=== PATIENT | female | born 1995 | race Caucasian/White ===

== ENCOUNTER 2019-08-30 14:29 | Inpatient (IN) | payer BC ==
[~2019-08-30 14:29] MED LIST: Dexamethasone 20 MG/5 ML VIAL ONE; Glycopyrrolate 0.2 MG/ML 5 ML SYRINGE ONE; Ketorolac Tromethamine 30 MG/ML VIAL ONE; Lidocaine 1% PF 5 ML VIAL ONE; Ondansetron PF 4 MG/2 ML Vial ONE; PHENYLEPHRINE-NS 100 MCG/ML 10 ML SYRINGE ONE; PROPOFOL 200 MG/20 ML VIAL ONE; Rocuronium Bromide 10 MG/ML (10ML VIAL) ONE; ePHEDrine/0.9% NaCl/PF SYRINGE 50 mg/10 ml ONE
[2019-08-30] MEDS ORDERED: Ondansetron PF 4 MG/2 ML Vial ONE ×2 (14:36→15:15)
[2019-08-30 15:03] LABS: #Eosinphils 0.2 thou/uL (0.0-0.7); #Lymphocytes 2.1 thou/uL (1.20-3.40); #Monocytes 0.6 thou/uL (0.11-0.59); #Neutrophils 9.6 thou/uL (1.40-6.50); %Basophils 0.1 % (0.0-1.0); %Lymphocytes 16.3 % (21.0-51.0); %Monocytes 4.8 % (0.0-10.0); %Neutrophils 76.7 % (42.0-75.0); Hemoglobin 11.2 g/dL (12.0-16.0); Mean Corpuscular HGB CONC 33.2 g/dL (32.0-36.0); Mean Corpuscular Volume 87.2 fL (78.0-98.0); Mean Platelet Volume 9.4 fL (7.4-10.4); Platelet Count 226 thou/uL (130-400); RBC Distribution Width 11.1 % (11.5-14.5); Red Blood Cell (RBC) Count 3.85 mill/uL (4.20-5.40); White Blood Cell (WBC) Count 12.5 thou/uL (4.8-10.8)
[2019-08-30 15:26] LABS: BHCG - Serum POSITIVE (NEGATIVE); Pregs Control Background? CLEAR/WHITE (CLR/WHITE); Pregs Control Bar Appear? YES (CONTROL BAR)
[2019-08-30] MEDS ORDERED: Fentanyl 100 MCG/2 ML VIAL ONE ×4 (15:40→20:46)
[2019-08-30 15:41] LABS: ALT (SGPT) 13 U/L (8-55); AST (SGOT) 25 U/L (5-34); Albumin 4.1 g/dL (3.5-5.0); Alkaline Phosphatase 82 U/L (40-110); Anion Gap 18 mmol/L (10-20); BUN (Urea Nitrogen) 11 mg/dL (7.0-18.7); Bilirubin, Total 0.3 mg/dL (0.2-1.2); Calc. Creatinine Clearance 0 mL/min (70-130); Calcium 9.2 mg/dL (7.8-10.44); Carbon Dioxide 18 mmol/L (22-29); Chloride 108 mmol/L (98-107); Estimated GFR-MDRD Greater than 90; Globulin 2.8 g/dL (2.4-3.5); Glucose 137 mg/dL (70-105); Lipase 22 U/L (8-78); Potassium 4.1 mmol/L (3.5-5.1); Protein, Total 6.9 g/dL (6.0-8.3); Sodium 140 mmol/L (136-145)
--- NOTE | 2019-08-30 16:43 | ULT ---
TRANSABDOMINAL TRANSVAGINAL PELVIC ULTRASOUND DATE:: 08/30/2019 3:34 PM CLINICAL HISTORY: Pelvic pain. COMPARISON: None. TECHNIQUE: Grayscale, color Doppler and spectral Doppler images were obtained of the pelvis see a tra nsabdominal transvaginal approach Uterus: Size: Uterus measures 8.7 x 7.8 cm Mass: There is a well-circumscribed cystic abnormality is seen within the region of the left cornua t hat has appearance of a gestational sac. There is an internal pole with no internal heart tones. The mean sac diameter of this gestational sac was 2.93 cm. The crown-rump length of the pole is 2.15 cm giving estimated gestational age of 8 weeks and 6 days. Small yolk sac is identified within the gestational sac. A second gestational sac is seen within the region of the left adnexa measuring 2.15 cm with an internal pole measuring 1 cm giving an estimated gestational age of 7 weeks and 0 days. There is no documentable heart tones with this pole. Cervix: Within normal limits Endometrium: Moderately thickened Endometrial Thickness: 15 mm Ovaries: The right and left ovary were not well seen. Mass: Left adnexal ectopic as above. Flow: Not assessed Cul-de-sac: Mild complex fluid is seen within the cul-de-sac. IMPRESSION: 2 separate ectopic gestational sacs containing poles are present. One is seen within the region of the left cornua of the uterus. An additional is seen adjacent to the region of the left adnexa. Both the gestational sacs have no documented internal heart tones. Findings are most consistent with aborted ectopic pregnancies. There is a mild amount of complex fluid present within the cul-de-sac suspicious for small amount of hemorrhage. [employer] consultation is recommended. Findings called to Dr. Luna at 4:30 PM on August 30, 2019.
--- NOTE | 2019-08-30 17:40 | PDOC.FPRHP ---
- History of Present Illness Chief Complaint: Abdominal pain, syncope History of Present Illness: 24 year old female presents with abdominal pain and syncopal episode at home. Onset of abdominal pain was sudden and severe, just prior to arrival. Patient states LMP was 08/23/2019. Last menstrual cycle prior was in June. Patient discontinued oral contraceptives 2 months ago. Prior to that, she was on OCP's for approximately one year. She had two menstrual cycles while on OCP's. Patient sexually active. She denies any history of STD's. Patient unaware of . OB Hospitalist called after TVUS revealed a cornual and tubal at appx 8.6 wks and 7.0 wks, respectively, with no heartbeat. Patient had syncopal episode while trying to get in wheelchair. She has been fluid resuscitated and is currently stable. However, she continues to have significant amount of pain. Bedside sono was performed with OB Hospitalist at bedside which was suspicious for cornual . Although location of other gestational sac difficult to ascertain. Patient denies chest pain, shortness of breath, N/V/D, fever, or chills. - History PMHx: Denies asthma, HTN, DM, or any other pertinent PMH PSHx: Cholecystecomy 2009, Gastric sleeve 2012 FHx: Non-contributory Social: Denies tobacco, alcohol, drug use - Review of Systems General: denies: fever/chills, weight/appetite/sleep changes Eyes: denies: vision changes ENT: denies: nasal congestion, rhinorrhea Respiratory: denies: cough, congestion, shortness of breath Cardiovascular: denies: chest pain, palpitation, edema Gastrointestinal: reports: nausea, abdominal pain. denies: vomiting Genitourinary: denies: dysuria Skin: denies: rashes Musculoskeletal: denies: pain, tenderness Neurological: reports: syncope. denies: numbness Psychological: reports: anxiety. denies: depression - Vital signs BP: 102/47 HR: 88 RR: 16 Tmax: Afebrile Pox: 100% on 1.5L - Physical Exam Constitutional: NAD, awake, alert and oriented HEENT: grossly normal vision, grossly normal hearing Heart: pulses present, no edema Abdomen: soft -Abdomen: Significantly TTP throughout, worse in right quadrant Neurological: no focal deficit Skin: no rash/lesions, capillary refill <2 seconds Heme/Lymphatic: no unusual bruising or bleeding, no purpura Psychiatric: normal mood and affect, good judgment and insight, intact recent and remote memory FMR H&P: Results - Labs Result Diagrams: 08/30/19 14:55 08/30/19 14:54 Lab results: WBC 12.5 thou/uL (4.8-10.8) H 08/30/19 14:55 Hgb 11.2 g/dL (12.0-16.0) L 08/30/19 14:55 Hct 33.6 % (36.0-47.0) L 08/30/19 14:55 MCV 87.2 fL (78.0-98.0) 08/30/19 14:55 Plt Count 226 thou/uL (130-400) 08/30/19 14:55 Neutrophils % 76.7 % (42.0-75.0) H 08/30/19 14:55 Sodium 140 mmol/L (136-145) 08/30/19 14:54 Potassium 4.1 mmol/L (3.5-5.1) 08/30/19 14:54 Chloride 108 mmol/L (98-107) H 08/30/19 14:54 Carbon Dioxide 18 mmol/L (22-29) L 08/30/19 14:54 BUN 11 mg/dL (7.0-18.7) 08/30/19 14:54 Creatinine 0.64 mg/dL (0.6-1.1) 08/30/19 14:54 Glucose 137 mg/dL (70-105) H 08/30/19 14:54 Calcium 9.2 mg/dL (7.8-10.44) 08/30/19 14:54 Total Bilirubin 0.3 mg/dL (0.2-1.2) 08/30/19 14:54 AST 25 U/L (5-34) 08/30/19 14:54 ALT 13 U/L (8-55) 08/30/19 14:54 Alkaline Phosphatase 82 U/L (40-110) 08/30/19 14:54 Serum Total Protein 6.9 g/dL (6.0-8.3) 08/30/19 14:54 Albumin 4.1 g/dL (3.5-5.0) 08/30/19 14:54 Lipase 22 U/L (8-78) 08/30/19 14:54 FMR H&P: A/P - Problem List (1) Ectopic Current Visit: Yes Status: Acute Code(s): O00.90 - UNSPECIFIED ECTOPIC WITHOUT INTRAUTERINE (2) Syncope Current Visit: Yes Status: Acute Code(s): R55 - SYNCOPE AND COLLAPSE - Plan 24 year old female presents with abdominal pain Unstable ectopic - Visualization via TVUS with OB Hospitalist at bedside, two separate gestational sacs which appear to outside the endometrium - 2 syncopal episodes requiring fluid resuscitation; will continue LR's - Will proceed with laporoscopic surgery with potential for open surgery or D&C ; consents signed - OB backup called in to assist with case - VSS currently stable, will continue to monitor - Type and screen - H/H 11.2/33.6 Syncope - Likely 2/2 above - Fluid resuscitation - Continue to monitor VS and intervene as necessary Dispo: Admit for surgical intervention. Patient to go to [facility] after [facility] if stable. Lakisha Sanders, DO PGY-3 FMR H&P: Upper Level - Plan Date/Time: 08/30/19 1735 I, [], have evaluated this patient and agree with findings/plan as outlined by internet systems administrator resident. Pertinent changes/additions are listed here. Addendum - Attending - Attending Attestation Date/Time: 08/30/19 7515 I personally evaluated the patient and discussed the management with Dr. Westbrook. 24 yo LAF presents to ER c/o abdominal pain. Found to have +HCG and USG showing both a cornual and left ectopic , both w/o FHTs. PMH/PSH c/w obesity, gastric sleeve and cholecystectomy. To OR for laparoscopy vs. laparotomy. Consent on chart. I agree with the History, Examination, Assessment and Plan documented above.
[2019-08-30] MEDS ORDERED: Scopolamine 1.5 mg/72 hour Patch TOP SCH (18:00)
[2019-08-30] MEDS ORDERED: Bupivacaine PF 0.5% 30 ML VIAL ONE (18:07)
[2019-08-30] MEDS ORDERED: Lidocaine 1% w/Epinephrine 1:100K 20 ML VIAL ONE (18:07)
[2019-08-30] MEDS ORDERED: HYDROmorphone 0.5 MG/0.5 ML SYRINGE ONE (18:16)
[2019-08-30] MEDS ORDERED: Midazolam HCl 2 mg/2 ml Vial ONE (18:16)
[2019-08-30] MEDS ORDERED: Promethazine HCl 25 MG/ML VIAL ONE (18:16)
[2019-08-30] MEDS ORDERED: Ondansetron HCl/PF 4 MG/2 ML Vial IVP PRN (20:44)
[2019-08-30] MEDS ORDERED: Promethazine HCl 25 MG/ML VIAL IM PRN (20:44)
[2019-08-30] MEDS ORDERED: PACU-Morphine 4MG/ML VIAL SLOW IVP PRN (20:44)
[2019-08-30] MEDS ORDERED: Promethazine HCl 25 MG/ML VIAL SLOW IVP PRN (20:44)
[2019-08-30] MEDS ORDERED: HYDROmorphone 2 MG/ML VIAL SLOW IVP PRN (20:44)
[2019-08-30] MEDS ORDERED: HYDROmorphone 2 MG/ML VIAL ONE (21:06)
[2019-08-30] MEDS ORDERED: Albuterol Sulfate 1.25 MG/3 ML NEB ONE (21:43)
--- NOTE | 2019-08-30 21:51 | OP ---
DATE OF PROCEDURE: 08/30/2019 PREOPERATIVE DIAGNOSIS: Suspected ectopic . POSTOPERATIVE DIAGNOSIS: Ruptured twin ectopic of the left fallopian tube. PROCEDURES PERFORMED: 1. Diagnostic laparoscopy. 2. Laparoscopic left salpingectomy. SURGEONS: Joshua Freedman MD, Mary De Leon MD AUTOMOTIVE PROJECT ENGINEER SURGEON: Lakisha Sanders DO ANESTHESIA: General endotracheal. ESTIMATED BLOOD LOSS: 600 mL. COMPLICATIONS: None. FINDINGS: 1. Ruptured twin ectopic of the left fallopian tube. 2. Normal uterus, normal right adnexa. 3. 600 mL hemoperitoneum. TECHNIQUE IN DETAIL: After good general endotracheal anesthesia was achieved, the patient was prepped and draped in usual sterile fashion in the dorsal lithotomy position using the Bertin stirrups. A speculum was placed in the vagina and the anterior aspect of the cervix was grasped with a tenaculum. Hulka tenaculum was then placed through the cervix into the uterus and the single-tooth tenaculum was removed. The speculum was also removed. A Peñaloza had been placed at the time of the prep. Attention was then turned to the abdomen. A small supraumbilical incision was made through a pre-existing laparoscopy scar. The Veress needle was passed initially and could not be adequate, placed in the peritoneal cavity. Decision at that time was to proceed with the 5 mm trocar using the Savalanche system. Using this technique, the upper port was placed into the peritoneal cavity. The pelvis was then insufflated with carbon dioxide gas. Under direct vision, two 5 mm ports were placed in the right and left lower quadrants. A small amount of free blood was seen in the pelvis, but there was a large area of clot in the omentum. This was irrigated and suctioned away and once this was done, it could be seen that she had a twin ectopic of the left fallopian tube which was ruptured and actively bleeding. The tube was grasped with an atraumatic grasper and then the LigaSure was then used to perform a soft salpingectomy on the left side. Good hemostasis was noted along this excision line. The pelvis was then copiously irrigated with saline. There was still some areas of adherent clot in the omentum, but there was no active bleeding seen. The port on the right side was replaced with a 10 mm trocar and sleeve. The pouch was then used to scoop the excised ectopic from the anterior cul-de-sac, where it has been placed and this was removed from the abdominal cavity. The 10 mm trocar site was then repaired under direct vision. All gas was then allowed to escape. The skin was infiltrated with a Marcaine solution and the skin was closed using subcuticular sutures of Monocryl. Dermabond was then placed across all three incisions. Attention was turned to the vagina, where all instruments were removed. No evidence of bleeding was seen from the cervix. The patient tolerated the procedure well, was awakened and taken to recovery room in good condition. Plan will be to observe her overnight and allow her to go home in the morning. Job ID: [id number] [facility]
[2019-08-30] MEDS ORDERED: HYDROcodone/Acetaminophen 5/325 mg Tablet PO PRN ×2 (22:46)
[2019-08-30] MEDS ORDERED: Ondansetron ODT 4 MG TAB PO PRN (22:46)
[2019-08-30] MEDS ORDERED: Ondansetron PF 4 MG/2 ML Vial IVP PRN (22:46)
[2019-08-30] MEDS: Ibuprofen 800 MG TAB PO SCH (23:34)
[2019-08-30] MEDS ORDERED: Acetaminophen/Codeine 30-300mg Tablet PO PRN (23:56)
[2019-08-31 00:06] VITALS: BMI 55.7
[2019-08-31] MEDS: Acetaminophen/Codeine 30-300mg Tablet PO PRN ×3 (00:14→08:19)
[2019-08-31 00:24] LABS: Hemoglobin 8.4 g/dL (12.0-16.0)
[2019-08-31 06:26] LABS: Hemoglobin 7.6 g/dL (12.0-16.0)
[2019-08-31] MEDS: Ibuprofen 800 MG TAB PO SCH ×2 (06:29→14:05)
--- NOTE | 2019-08-31 07:51 | PDOC.BPN ---
<Lakisha Sanders - Last Filed: 08/31/19 07:45> - Brief Progress Note Patient doing well post-operatively. Hg has leveled out to 7.6 from 11.2 after appx 12 hours. Patient denies N/V, dizziness, headache, chest pain, palpitations , shortness of breath. Patient still has weaver in place. Will d/c weaver and encourage ambulation. Plan to check on patient later this afternoon with possible d/c if doing well. Patient tolerating PO. Nurse reports that she was eating chicken nuggets overnight. General: Alert and oriented x3. NAD. HEENT: MMM Card: RRR Resp: No acute respiratory distress Ext: No swelling or cyanosis Abd: Obese, non-tender to palpation A/P: Ectopic twin s/p laparoscopic surgery. Patient stable and doing well. Hg/Hct stable. Encourage ambulation and plan for d/c home later this afternoon. <Hilario Freedman - Last Filed: 08/31/19 08:38> Addendum - Attending - Attending Attestation Date/Time: 08/31/19 0836 I personally evaluated the patient and discussed the management with Dr. Westbrook. Doing well s/p scope ectopic. Weaver out, ambulate. Anticipate DC later this AM, rx. for T3 on chart. To f/u with Dr. De Leon at [facility]. I agree with Assessment and Plan documented above.
[2019-08-31] MEDS ORDERED: Docusate 100 MG CAP PO SCH ×2 (11:08→21:00)
[2019-08-31] MEDS: Simethicone Chewable 80 MG TAB PO SCH ×2 (11:21→15:32)
[2019-08-31] MEDS: traMADol HCl 50 MG TAB PO PRN ×2 (11:21→15:31)
[2019-08-31 16:32] VITALS: BP 118/58; TEMP 98
[2019-08-31] MEDS ORDERED: FLU VACC QS2019-20(6MOS UP)/PF 60 MCG/0.5 ML SYRINGE IM ONE (21:00)
--- NOTE | 2019-09-01 14:24 | DIS ---
DATE OF ADMISSION: 08/30/2019 DATE OF DISCHARGE: 08/31/2019 RESIDENT: Lakisha Sanders, DO DISCHARGE ATTENDING: Hilario Freedman MD. PROCEDURES: 1. Diagnostic laparoscopy. 2. Laparoscopic left salpingectomy. MEDICATIONS: 1. Docusate 100 mg p.o. b.i.d. 2. Simethicone 80 mg p.o. after food at bedtime. 3. Tramadol 100 mg p.o. q.6 hours p.r.n. PRIMARY DIAGNOSES: Ruptured twin ectopic at the left fallopian tube, status post laparoscopic left salpingectomy and diagnostic laparoscopy. HISTORY OF PRESENT ILLNESS/HOSPITAL COURSE: This is a 24-year-old G1, P0, who presented to the emergency department with sudden onset abdominal pain prior to arrival. Labs and imaging were performed, which were suggestive of an ectopic or cornual . Imaging difficult to interpret; however, given high suspicion for ectopic or cornual , the decision was made to proceed with a diagnostic laparoscopy with plan for salpingectomy or D&C as indicated by diagnostic laparoscopy. Intraoperatively, a ruptured twin ectopic was noted and a left salpingectomy was performed via laparoscopy. There was noted to be significant amount of clotted blood in the abdomen, which was irrigated and suctioned. On admission, the patient's hemoglobin was noted to be 11.2. Approximately 6 hours after operation, hemoglobin noted to be 8.4 and 12 hours after operation, hemoglobin noted to be 7.6. Given relatively stable hemoglobin within a 12-hour period, this was not repeated as there was no further bleeding noted. The patient did extremely well postoperatively. She was no longer having abdominal tenderness on re-evaluation the morning after the procedure. Of note, patient was not aware of prior to ED visit. She does have a healthy tube on the right side should she desire in the future. This was explained to the patient. The patient was discharged home with pain medication and Docusate. She should also have been instructed to take iron given significant amount of blood loss from ectopic . The patient instructed to follow up with Dr. De Leon, who was present during the operation within a week. DISCHARGE CONDITION: Stable. DISPOSITION: 1. Discharge location: Home. 2. Diet: Regular. 3. Activity: As tolerated. 4. Followup: The patient is to follow up with Dr. De Leon in her office within a week. Job ID: [id number] [facility]
--- NOTE | 2019-09-03 19:38 | PDOC.EVN ---
Event Note - Event Note Event Note: Chart check (PATH): Tube with chorionic villi C/W Ectopic gestation
== END 2019-08-31 18:58 | disposition home or self-care (01) | DRG 819 ==
LOC: ERS 14:29 → 3SE 18:33 → SDC/OP 18:33 → 3SE 22:41
PROVIDERS: ADMIT Obstetrics & Gynecology; ATTEND Obstetrics & Gynecology
PROC: 0UT64ZZ Resection of Left Fallopian Tube, Percutaneous Endoscopic Approach (ICD-10-PCS; principal; 2019-08-30)
DX: O00.102 Left tubal pregnancy without intrauterine pregnancy (principal); O00.80 Other ectopic pregnancy without intrauterine pregnancy; Z90.49 Acquired absence of other specified parts of digestive tract; Z93.1 Gastrostomy status; Z88.1 Allergy status to other antibiotic agents; Z98.84 Bariatric surgery status; Z91.040 Latex allergy status; Z91.013 Allergy to seafood
CPT/HCPCS: 36415; 76856; 80053; 83690; 84702; 84703; 85014; 85018; 85025; 86850; 86870; 86900; 86901; 86905; 86922; 88305; J0131; J1100; J1170; J1885; J2001; J2250; J2405; J2550; J2704; J3010; S0020

== ENCOUNTER 2022-11-24 09:10 | Emergency (ER) | payer BC ==
[2022-11-24 09:41] LABS: #Eosinphils 0.2 thou/uL (0.0-0.7); #Lymphocytes 1.5 thou/uL (1.20-3.40); #Monocytes 0.8 thou/uL (0.11-0.59); #Neutrophils 5.5 thou/uL (1.40-6.50); %Basophils 0.2 % (0.0-1.0); %Eosinophils 2.3 % (0.0-10.0); %Lymphocytes 18.8 % (21.0-51.0); %Monocytes 9.6 % (0.0-10.0); %Neutrophils 69.1 % (42.0-75.0); Hemoglobin 12.6 g/dL (12.0-16.0); Mean Corpuscular HGB CONC 31.3 g/dL (32.0-36.0); Mean Corpuscular Hemoglobin 27.7 pg (27.0-31.0); Mean Corpuscular Volume 88.7 fl (78.0-98.0); Mean Platelet Volume 9.6 fL (7.4-10.4); Platelet Count 188 10x3/uL (130-400); RBC Distribution Width 13.1 % (11.5-14.5); Red Blood Cell (RBC) Count 4.56 mill/uL (4.20-5.40)
[2022-11-24 10:05] LABS: BHCG - Serum POSITIVE (NEGATIVE); Pregs Control Background? CLEAR/WHITE (CLR/WHITE); Pregs Control Bar Appear? YES (CONTROL BAR)
[2022-11-24 10:32] LABS: Bacteria/HPF None Seen HPF (None Seen); Bilirubin Negative (Negative); Blood, Urine 3+ (Negative); Clarity Clear (Clear); Glucose, Urine (Dipstick) Normal (Negative); Ketone, Urine Negative (Negative); Leukocyte Negative Leu/uL (Negative); Nitrite Negative (Negative); Protein, Urine (Dipstick) Negative (Neg-Trace); RBC/HPF 0-3 HPF (0-3); Specific Gravity, Urine 1.011 (1.002-1.036); Squamous Epithelial 0-3 HPF (0-3); Urobilinogen Normal mg/dL (Less than 2); WBC/HPF 0-3 HPF (0-3); pH, Urine 6.5 (5.0-9.0)
[2022-11-24 10:57] LABS: ALT (SGPT) 20 U/L (8-55); AST (SGOT) 20 U/L (5-34); Albumin 4.5 g/dL (3.5-5.0); Alkaline Phosphatase 65 U/L (40-110); Anion Gap 15 mmol/L (10-20); BUN (Urea Nitrogen) 7 mg/dL (7.0-18.7); Bilirubin, Total 0.4 mg/dL (0.2-1.2); Calc. Creatinine Clearance 0 mL/min (70-130); Calcium 9.5 mg/dL (7.8-10.44); Carbon Dioxide 22 mmol/L (22-29); Chloride 105 mmol/L (98-107); Estimated GFR 125; Globulin 3.1 g/dL (2.4-3.5); Glucose 96 mg/dL (70-105); Lipase 21 U/L (8-78); Potassium 3.8 mmol/L (3.5-5.1); Protein, Total 7.6 g/dL (6.0-8.3); Sodium 138 mmol/L (136-145)
== END 2022-11-24 13:00 | disposition home or self-care (01) ==
LOC: ERS 09:10
DX: O20.0 Threatened abortion (principal); Z3A.01 Less than 8 weeks gestation of pregnancy
CPT/HCPCS: 36415; 76856; 80053; 81003; 81015; 83690; 84702; 84703; 85025; 86900; 86901

== ENCOUNTER 2023-08-28 04:08 | Emergency (ER) | payer BC ==
[2023-08-28] MEDS ORDERED: Ondansetron PF 4 MG/2 ML Vial ONE ×2 (04:17→07:35)
[2023-08-28 04:52] LABS: #Monocytes 0.3 thou/uL (0.11-0.59); #Neutrophils 12.2 thou/uL (1.40-6.50); %Basophils 0.2 % (0.0-1.0); %Eosinophils 0.1 % (0.0-10.0); %Monocytes 1.9 % (0.0-10.0); %Neutrophils 91.5 % (42.0-75.0); Hematocrit 40.3 % (36.0-47.0); Hemoglobin 13.4 g/dL (12.0-16.0); Mean Corpuscular HGB CONC 33.3 g/dL (32.0-36.0); Mean Corpuscular Hemoglobin 28.8 pg (27.0-31.0); Mean Corpuscular Volume 86.7 fl (78.0-98.0); Mean Platelet Volume 11.8 fL (7.4-10.4); Platelet Count 203 10x3/uL (130-400); Red Blood Cell (RBC) Count 4.65 mill/uL (4.20-5.40); White Blood Cell (WBC) Count 13.4 10x3/uL (4.8-10.8)
[2023-08-28 04:58] LABS: BHCG - Serum Negative (NEGATIVE); Pregs Control Background? CLEAR/WHITE (CLR/WHITE); Pregs Control Bar Appear? YES (CONTROL BAR)
[2023-08-28 05:16] LABS: ALT (SGPT) 10 U/L (8-55); AST (SGOT) 19 U/L (5-34); Albumin 4.6 g/dL (3.5-5.0); Alkaline Phosphatase 75 U/L (40-110); Anion Gap 14 mmol/L (10-20); BUN (Urea Nitrogen) 10 mg/dL (7.0-18.7); Bilirubin, Total 0.5 mg/dL (0.2-1.2); Calc. Creatinine Clearance 0 mL/min (70-130); Calcium 9.9 mg/dL (7.8-10.44); Carbon Dioxide 23 mmol/L (22-29); Chloride 104 mmol/L (98-107); Estimated GFR 119; Glucose 135 mg/dL (70-105); Lipase 32 U/L (8-78); Potassium 4.1 mmol/L (3.5-5.1); Protein, Total 8.6 g/dL (6.0-8.3); Sodium 137 mmol/L (136-145)
[2023-08-28] MEDS ORDERED: Ketorolac Tromethamine 30 MG/ML VIAL ONE (05:38)
[2023-08-28 05:49] LABS: Bacteria/HPF None Seen HPF (None Seen); Bilirubin Negative (Negative); Blood, Urine Negative (Negative); CAUTI Indications for Culture Pelvic or flank pain; Clarity Clear (Clear); Glucose, Urine (Dipstick) Normal (Negative); Ketone, Urine Negative (Negative); Leukocyte Negative Leu/uL (Negative); Nitrite Negative (Negative); Protein, Urine (Dipstick) 10 mg/dL (Neg-Trace); RBC/HPF 0-3 HPF (0-3); Specific Gravity, Urine 1.028 (1.002-1.036); Squamous Epithelial 0-3 HPF (0-3); Urobilinogen Normal mg/dL (Less than 2); WBC/HPF 0-3 HPF (0-3); pH, Urine 5.5 (5.0-9.0)
[2023-08-28 05:50] LABS: Urine Culture Reflex No No
[2023-08-28] MEDS ORDERED: Dicyclomine 20 MG/2 ML VIAL ONE (07:35)
[2023-08-28] MEDS ORDERED: Iopamidol-370 76% 500 ML MDV (1 ML CHARGE) ONE (11:06)
== END 2023-08-28 08:32 | disposition home or self-care (01) ==
LOC: ERS 04:08
DX: K52.9 Noninfective gastroenteritis and colitis, unspecified (principal)
CPT/HCPCS: 36416; 74177; 80053; 81001; 83605; 83690; 84703; 85025; 96361; 96372; 96374; 96375; 96376; J1885; J2405; Q9967